=== PATIENT | male | born 1975 | race Two or more races ===

== ENCOUNTER → 2020-09-06 09:09 | Outpatient (REF) | payer MEDICAID, SELFPAY ==
--- NOTE | 2020-09-06 09:15 | CA_ITS ---
Acquisition Time: 2020-09-06 09:26:20 Total Exercise Time: 00:09:56 Test Indications: CP Medications: SEE CHART Protocol: BESS Max HR: 169 BPM 94% of Pred: 178 BPM Max BP: 160/070 mmHG Max Work Load: 11.5 METS Exercise stress test with exercise 9 min 56 sec of Bess protocol, without anginal symptoms, with rare isolated PAC and then 3 isolated PVC in recovery, with normotensive response to exercise, without EKG changes meeting criteria for ischemia. Test reviewed with Dr Cardenas Referred By: Urvashi Tong Overread By: MICHAEL ARREDONDO
== END ==
LOC: HO.CARD 09:09
PROVIDERS: PCP Nurse Practitioner Primary Care; Visit Provider Nurse Practitioner Primary Care
DX: E11.65 Type 2 diabetes mellitus with hyperglycemia (principal); R07.2 Precordial pain
CPT/HCPCS: 93017

== ENCOUNTER → 2020-09-30 13:47 | Outpatient (BNVA) | payer MEDICAID, SELFPAY | PROVIDERS: PCP Nurse Practitioner Primary Care; Referring Provider Nurse Practitioner Primary Care; Visit Provider Urology | DX: Z76.89 Persons encountering health services in other specified circumstances (principal) | CPT/HCPCS: 99202 ==

== ENCOUNTER → 2020-12-29 13:49 | Outpatient (BNVA) | payer MEDICAID, SELFPAY | PROVIDERS: PCP Nurse Practitioner Primary Care; Visit Provider Urology | DX: N52.01 Erectile dysfunction due to arterial insufficiency (principal) | CPT/HCPCS: 99212 ==

== ENCOUNTER → 2021-03-31 14:34 | Outpatient (BNVA) | payer MEDICAID, SELFPAY | PROVIDERS: PCP Nurse Practitioner Primary Care; Visit Provider Urology ==

== ENCOUNTER → 2021-07-07 14:10 | Outpatient (BNVA) | payer MEDICAID, SELFPAY | PROVIDERS: PCP Nurse Practitioner Primary Care; Visit Provider Urology | DX: N52.01 Erectile dysfunction due to arterial insufficiency (principal) | CPT/HCPCS: 99212 ==

== ENCOUNTER 2021-08-22 08:55 | Outpatient (REF) | payer MEDICAID, SELFPAY ==
[2021-08-22 09:43] LABS: COVID-19 Test Negative (Negative)
== END 2021-08-22 08:56 | disposition home or self-care (01) ==
LOC: HO.LAB 08:55
PROVIDERS: PCP Nurse Practitioner Primary Care; Visit Provider Internal Medicine
DX: Z20.822 Contact with and (suspected) exposure to COVID-19 (principal)
CPT/HCPCS: 36415; 87635; C9803

== ENCOUNTER 2024-04-29 15:02 | Outpatient (AMB) | payer OTHER, SELFPAY ==
--- NOTE | 2024-04-29 15:23 | A.OFFVIS_ITS ---
Intake Visit Reasons: Erectile Dys/Implant Consult(A1C 6.3) Intake Note: New Patient is present for Erectile Dysfunction. 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 He is a patient of Dr. Tong. He seen for the following urologic conditions - erectile dysfunction Discussion today Does have some degree of response to the oral medications Increase strength of tadalafil Discussed injectable therapy Prescription sent to [place] and he will call in received medication for teaching Last presentation 2020 Previously discussed may need penile prosthetic Erectile dysfunction Ongoing erectile dysfunction Type 2 diabetic Failed on demand oral medications Cannot gain erection or maintain erection Increase tadalafil to 20 mg daily with on demand sildenafil PFSH Medical History Anxiety disorder Diabetes mellitus, type II Lateral epicondylitis Surgical History (Updated 07/10/24 @ 10:29 by Lori Morley RN) Hx of circumcision Social History Are you a primary healthcare advisory services manager to a significant other at home: No Do you presently have visiting nurse or other home services: No Patient Tobacco Use Status: Former Tobacco user Have you been hit, kicked, punched, or otherwise hurt by someone within the past year? If so, by whom?: No Are you DNR?: No Advance Directives: No Advance Directives Information Provided: Yes Recently lost weight without trying: No Nutrition Risks: No Nutritional Risk Review of Systems Const Denies chills and Denies fever(s) Card Reports no additional complaints and Denies syncope Resp Denies cough GI Denies abdominal pain and Denies heartburn Reports as per HPI and Denies change in libido Neuro Denies syncope Psych Denies change in libido Endo Denies change in libido Physical Exam Const General: cooperative, healthy appearing, comfortable and no acute distress Orientation/consciousness: patient oriented x3 HEENT Face and sinus: Yes normal facial exam Mouth: moist mucous membranes Neck Neck: Yes normal visual inspection, Yes full ROM and Yes trachea midline Chest Chest palpation & inspection: normal inspection of the chest Resp Effort & Inspection: normal respiratory effort, able to speak in complete sentences and no respiratory distress GI Inspection: Yes normal to inspection Back/Spine/Pelvis Cervical Spine: normal cervical lordosis Thoracic/Lumbar Spine: thoracic and lumbar spine normal to inspection Skin General skin exam: no rashes or lesions noted Neuro General: patient oriented x3, gait normal, tone normal and moves all extremities Extrem General: Yes normal to inspection and Yes capillary refill normal Assessment & Plan Assessment & Plan (1) Erectile dysfunction associated with type 2 diabetes mellitus: Code(s): E11.69 - Type 2 diabetes mellitus with other specified complication; N52.1 - Erectile dysfunction due to diseases classified elsewhere Category: Medical Plan Six-month follow-up Patient Instructions: Imaging studies, laboratory and physical exam results were discussed and reviewed in detail. No major barriers to patient understanding were identified. An opportunity to ask questions regarding the treatment plan was provided. All questions were answered. The patient expressed understanding and agreement with the above treatment plan. The patient is aware they should contact our office by phone for worsening of their current condition or the appearance of new urologic symptoms. Compliance is encouraged with any medications and followup testing that is ordered. It is a privilege to participate in the urologic care of your patient. If you have any questions or concerns regarding treatment for the above conditions, or other urologic issues, please do not hesitate to contact me. The office telephone contact is [phone]. This note is constructed using voice recognition software. While every effort has been made to ensure accuracy dental practitioner errors may have been included. Yours sincerely, Dr Phillip Carrasquillo MD, FENG [facility] - Urology Providers of Expert, Compassionate Care for the Genitourinary System Coding Level of Care Code Est Pt Level 4 (35915) Diagnoses Erectile dysfunction associated with type 2 diabetes mellitus E11.69; N52.1
== END 2024-04-29 16:17 | disposition home or self-care (01) ==
PROVIDERS: PCP Nurse Practitioner Primary Care; Visit Provider Urology
DX: E11.69 Type 2 diabetes mellitus with other specified complication (principal); N52.1 Erectile dysfunction due to diseases classified elsewhere
CPT/HCPCS: 99214

== ENCOUNTER → 2024-04-29 15:02 | Outpatient (BNVA) | payer OTHER, SELFPAY | PROVIDERS: PCP Nurse Practitioner Primary Care; Visit Provider Urology ==

== ENCOUNTER 2024-07-10 09:56 | Day surgery (SDC) | payer OTHER, SELFPAY ==
[2024-07-10 10:26] VITALS: BMI 31.3
[2024-07-10 10:43] VITALS: BP 149/80; PULSE 79; RESP 18; TEMP 36.7; O2SAT 96
[2024-07-10] MEDS: Lactated Ringers 1,000 ML 80 ML IVCONT (10:49)
--- NOTE | 2024-07-10 11:01 | MHC.SHP ---
Pre-Procedural Eval Section A - 24 Hr Update-Section A only Date of Service: 07/10/24 Section B - Complete if H&P > 30 days Chief Complaint: screening Details of Present Illness: see H&P no changes Relevant Family History (Specify if Yes): No Relevant Social History: None Present Medications: see Short Stay Collaborative assessment Medical History: No relevant PMH History of Previous Operations: No relevant previous surgery Allergies: Allergies Allergy/AdvReac Type Severity Reaction Status Date / Time iodine Allergy Unknown unknown Verified 07/10/24 10:29 Review of Systems Sugical H&P ROS: Negative: Constitution, Cardiovascular, Respiratory, Neurological, Psychiatric, Hem-Onc, Allergic/Immunologic, Gastrointestinal, Genitourinary, Musculoskeletal, Integumentary, Endocrine and Eyes/Ears/Nose/Throat Exam Surgical H&P Exam: Normal: HEENT, Normal: Heart, Normal: Lungs, Normal: Extremities, Normal: Abdomen, Normal: Skin and Normal: Neurological Plan Diagnosis/Plan: Unchanged I have reviewed the history and physical and performed a pertinent physical examination on my patient. No changes have occurred unless specified. Time Spent With Patient Time: Total time managing care of this patient today ____ minutes.
--- NOTE | 2024-07-10 11:05 | P.CONAN_ITS ---
HPI - Anesthesia Eval Consult details Narrative: 48 yo M presenting for colonoscopy [facility] Active Problems Active Problems: All Active Problems Erectile dysfunction associated with type 2 diabetes mellitus (Acute) Erectile dysfunction due to arterial insufficiency (Acute) Past Medical History Medical History Anxiety disorder Diabetes mellitus, type II Lateral epicondylitis Family History Family history of problems with anesthesia: No Surgical History Surgical History (Updated 07/10/24 @ 10:29 by Lori Morley RN) Hx of circumcision History of Problems with Anesthesia: No Social History Social History Are you a primary pediatric critical care nurse to a significant other at home: No Do you presently have visiting nurse or other home services: No Patient Tobacco Use Status: Former Tobacco user Have you been hit, kicked, punched, or otherwise hurt by someone within the past year? If so, by whom?: No Are you DNR?: No Advance Directives: No Advance Directives Information Provided: Yes Recently lost weight without trying: No Nutrition Risks: No Nutritional Risk Meds Allergies Allergy/AdvReac Type Severity Reaction Status Date / Time iodine Allergy Unknown unknown Verified 07/10/24 10:29 Active Medications: Current Medications Lactated Ringer's (Lr) 1,000 mls @ 80 mls/hr IVCONT .[id number] MANAN Last Admin: 07/10/24 10:49 Dose: 80 mls/hr Exam Exam Date and Time: 07/10/24 1103 Height,Weight and Vital Signs: Height 5 ft 10 in Weight 98.883 kg Last Vital Signs Temp 98.0 F 07/10/24 10:43 Pulse 79 07/10/24 10:43 Resp 18 07/10/24 10:43 BP 149/80 H 07/10/24 10:43 Pulse Ox 96 07/10/24 10:43 O2 Del Method Room Air 07/10/24 10:43 Airway Mallampati Class: II TM Dist: >3cm Neck ROM: Full Denture: Upper and Lower Heart: S1S2 Lungs: CTAB Assessment and Plan Assessment Anesthesia Assessment: Anesthesia Plan Discussed and Chart Reviewed Final Anesthetic Review Family History of Problems with Anesthesia: No History of Problems with Anesthesia: No NPO: Yes ASA Class: II Final Preanesthetic Review: No Changes in Pt Med Stat, Meds/Allgs Chart Reviewed, Consent Obtained/Reviewed and Anes Risks/Benef Reviewed Patient Risk: Low Procedure Risk: Low Anesthetic Plan Anesthetic Plan: MAC: and Agree w/ Assess. and Plan Disposition: Standard PACU
[2024-07-10 11:29] VITALS: BP 100/55; PULSE 72; RESP 16; TEMP 36.1; O2SAT 96
[2024-07-10 11:44] VITALS: BP 122/73; PULSE 73; RESP 16; TEMP 36.6; O2SAT 96
--- NOTE | 2024-07-10 12:16 | OP_ITS ---
DATE OF SERVICE: 07/10/2024 SURGEON: Elijah Griffin MD INDICATIONS: Colon cancer screening. PREOPERATIVE DIAGNOSIS: POSTOPERATIVE DIAGNOSIS: PROCEDURE PERFORMED: Colonoscopy to the terminal ileum with biopsy. ESTIMATED BLOOD LOSS: COMPLICATIONS: ANESTHESIA: Monitored anesthesia care. ASSISTANTS: SPECIMENS: DESCRIPTION OF PROCEDURE: A history and physical was performed. The risks and benefits of the procedure were explained to the patient. Informed consent was obtained. The patient was placed in the left lateral decubitus position. A digital rectal exam was performed and was found to be normal. The Olympus pediatric video colonoscope was introduced into the rectum and advanced to the cecum. The cecum was identified by transillumination, palpation, and identification of ileocecal valve. Examination was performed. The scope was removed. He tolerated the procedure well and was returned to the recovery area in stable condition. FINDINGS: The terminal ileum was examined and appeared normal. The visualized colonic mucosa was normal. The quality of the prep was good. A single polyp measuring less than 5 mm was identified in the rectum and removed with a biopsy forceps. There were some hyperplastic changes to the mucosa in the rectum. Retroflexed examination showed some small internal hemorrhoids. IMPRESSION: Colon polyp. RECOMMENDATION: Follow up the biopsy results. MD TOYA Dawson/TAINA / [id number]
== END 2024-07-10 12:00 | disposition home or self-care (01) ==
PROVIDERS: PCP Nurse Practitioner Primary Care; Visit Provider Internal Medicine Gastroenterology
PROC: 0DJD8ZZ Inspection of Lower Intestinal Tract, Via Natural or Artificial Opening Endoscopic (ICD-10-PCS; CPT 45378; principal; 2024-07-10 11:50)
DX: Z12.11 Encounter for screening for malignant neoplasm of colon (principal); K62.1 Rectal polyp; K64.8 Other hemorrhoids; E11.9 Type 2 diabetes mellitus without complications; Z98.52 Vasectomy status
CPT/HCPCS: 45380; 88305; J2003; J2704

== ENCOUNTER 2025-08-04 13:44 | Outpatient (AMB) | payer OTHER, SELFPAY ==
--- OUTSIDE RECORDS SUMMARY | 2024-07-10 06:50 | XMS_ITS ---
Author Organization [facility] Address [address] [place] [id number] Care Team Providers Care Utility Operator Name Role Phone MIRYAM MANNING N.P. Primary Care Provider Elijah Oneil Jr REASON FOR VISIT screening Encounters Encounter Location Date Provider Diagnosis [facility] [place] Outpatient [address] [place] [id number] 07/10/2024 lEijah Griffin Jr Colon cancer screening Z12.11 and Colon polyps K63.5 Assessments Encounter Date Diagnosis (ICD Code) Assessment Notes Treatment Notes Treatment Clinical Notes Section Notes 07/10/2024 Colon cancer screening (ICD-10 - Z12.11) 07/10/2024 Colon polyps (ICD-10 - K63.5) Plan Of Treatment No Information Progress Notes * MEAGHAN ROSSOB:1975 ( 49 yo M)Acc No.[id number]:07/10/2024 COLON WITH MAC Patient: JESSICA RICO Provider: Hilary Griffin MD :1975 A ge:48 Y S ex:Male Date:07/10/2024 Address:[address] [place], [place] [id number] Pcp:MIRYAM MANNING N.P. Subjective: * Chief Complaints: * S creening Assessment: * Assessment: 1. C olon cancer screening - Z12.11 (Primary) 2 . C olon polyps - K63.5? Plan: * Procedure Codes: 4 5380 COLONOSCOPY AND [id number] INTRVL 3+YRS PTS CLNSCP [id number] RCMND FLW-UP 10 YRS DOCD, Modifiers: 1P Billing Information: * Procedure Codes: 16461 COLONOSCOPY AND BIOPSY. 0529F INTRVL 3+YRS PTS CLNSCP DOCD. 0528F RCMND FLW-UP 10 YRS DOCD. Modifiers: 1P * The named appointment provid er may or may not be the originator of this progress note, and it is not deemed complete until electronically signed by the appointment provider. Sign off status: Pending * Provider: Hilary Griffin MD Date: 1 Generated for Qasim guzman/Kayla/Renaeitting on: 10/05/2024 01:49 AM EST
--- NOTE | 2025-08-04 13:50 | MHC.OFFVIS ---
Intake Visit Reasons: FOLLOW UP FOR Rx REFILL Intake Note: Patient Is Present for Follow Up Urology Med: Sildenafil, Tadalafil Antibiotic Allergy: None Blood Thinner: None Sexologist Required: No Accompanied by: Self / Same As Patient Allergies iodine Allergy (Unknown, Verified 08/04/25 14:00) unknown HPI Comments Details: Carlos is a pleasant male. He is a patient of Dr. Tong. He seen for the following urologic conditions - erectile dysfunction Does have some effective doses 20 mg daily tadalafil and up to 200 mg on demand sildenafil Previously discussed may need penile prosthetic He wantched a video and found this was somewhat invasive Erectile dysfunction Ongoing erectile dysfunction Type 2 diabetic Failed on demand oral medications Cannot gain erection or maintain erection Previous all dosing includes tadalafil to 20 mg daily with on demand sildenafil Has been on injectable therapy [facility] Medical History (Updated 08/04/25 @ 14:21 by Phillip Carrasquillo MD) Erectile dysfunction due to arterial insufficiency Anxiety disorder Diabetes mellitus, type II Lateral epicondylitis Surgical History Hx of circumcision Social History Are you a primary critical care cns to a significant other at home: No Do you presently have visiting nurse or other home services: No Patient Tobacco Use Status: Former Tobacco user Review of Systems Const Denies chills and Denies fever(s) Card Reports no additional complaints and Denies syncope Resp Denies cough GI Denies abdominal pain and Denies heartburn Reports as per HPI and Denies change in libido Neuro Denies syncope Psych Denies change in libido Endo Denies change in libido Physical Exam Const General: cooperative, healthy appearing, comfortable and no acute distress Orientation/consciousness: patient oriented x3 HEENT Face and sinus: Yes normal facial exam Mouth: moist mucous membranes Neck Neck: Yes normal visual inspection, Yes full ROM and Yes trachea midline Chest Chest palpation & inspection: normal inspection of the chest Resp Effort & Inspection: normal respiratory effort, able to speak in complete sentences and no respiratory distress GI Inspection: Yes normal to inspection Back/Spine/Pelvis Cervical Spine: normal cervical lordosis Thoracic/Lumbar Spine: thoracic and lumbar spine normal to inspection Skin General skin exam: no rashes or lesions noted Neuro General: patient oriented x3, gait normal, tone normal and moves all extremities Extrem General: Yes normal to inspection and Yes capillary refill normal Assessment & Plan Assessment & Plan (1) Erectile dysfunction associated with type 2 diabetes mellitus: Code(s): E11.69 - Type 2 diabetes mellitus with other specified complication; N52.1 - Erectile dysfunction due to diseases classified elsewhere Category: Medical Plan Six-month follow-up Medications: Changed From sildenafil administer 60 minutes before intended activity To be used in addition to daily tadalafil 100 mg PO DAILY 30 days PRN 30 tabs 1RF sexual activity N52.01 - Erectile dysfunction due to arterial insufficiency To sildenafil administer 60 minutes before intended activity [id number] [facility] [id number] Member [id number] 100 mg PO DAILY PRN 30 tabs 2RF sexual activity 30 days N52.01 - Erectile dysfunction due to arterial insufficiency Refilled tadalafil 20 mg PO DAILY 90 tabs 1RF sexual activity 90 days N52.01 - Erectile dysfunction due to arterial insufficiency Discontinued tadalafil Discontinued Reason: Patient Refused 10 mg PO DAILY 90 days PRN 90 tabs 0RF sexual activity N52.01 - Erectile dysfunction due to arterial insufficiency, N52.9 - Male erectile dysfunction, unspecified Patient Instructions: This note is constructed using voice recognition software. While every effort has been made to ensure accuracy tin pot operator errors may have been included. Imaging studies, laboratory and physical exam results were discussed and reviewed in detail. No major barriers to patient understanding were identified. An opportunity to ask questions regarding the treatment plan was provided. All questions were answered. The patient expressed understanding and agreement with the above treatment plan. The patient is aware they should contact our office by phone for worsening of their current condition or the appearance of new urologic symptoms. Compliance is encouraged with any medications and followup testing that is ordered. It is a privilege to participate in the urologic care of your patient. If you have any questions or concerns regarding treatment for the above conditions, or other urologic issues, please do not hesitate to contact me. The office telephone contact is [phone]. Sincerely, Dr Phillip Carrasquillo MD, FENG [facility] - Urology Compassionate Specialist Care for the Genitourinary System Coding Level of Care Code Est Pt Level 4 (10924) Complex EM visit Add On G2211 Diagnoses Erectile dysfunction associated with type 2 diabetes mellitus E11.69; N52.1
--- OUTSIDE RECORDS SUMMARY | 2025-08-05 01:49 | XMS_ITS | Clinical Summary ---
Author Organization [employer] Address [address] [facility] [address] [place] [address] Care Team Providers Care Data Programmer Name Role Phone Urvashi Tong Primary Care Provider [phone] Allergies No known active allergies Medications glucose blood (FREESTYLE TEST STRIPS) test strip check blood sugar 2-3 times a day as directed 2 Active Alcohol Swabs (Alcohol Prep) 70 % padsIndications:Ty pe 2 diabetes mellitus with hyperlipidemia (HCC) USE 2 OR 3 TIMES DAILY 100 each 11 3 Active omeprazole (PriLOSEC) [address] capsuleIndications :Heartburn TAKE 1 CAPSULE BY MOUTH EVERY DAY BEFORE A MEAL 90 capsule 3 3 Active sildenafil (Viagra) 50 MG tabletIndications: Vasculogenic erectile dysfunction, unspecified vasculogenic erectile dysfunction type Take 1 tablet 1 hour before sexual relations 20 tablet 2 4 Active tadalafil (Cialis) 20 MG tabletIndications: Vasculogenic erectile dysfunction, unspecified vasculogenic erectile dysfunction type Take 1 tablet (20 mg) by mouth Once daily. 90 tablet 1 4 Active Active Problems Problem Noted Date Diagnosed Date Type 2 diabetes mellitus with hyperlipidemia 07/2024 Overview (02/25/2024): Not taking meds. Lab Results Component Value Date HGBA1C 6.3 (A) 02/25/2024 HGBA1C 8.8 (A) 09/24/2022 HGBA1C 7.4 (H) 05/11/2022 A1c 6.3 down from 8.8! Despite not taking meds. Doing really well w/ lifestyle interventions. encouraged to continue, though cautioned we may need to resume meds at some point regardless of his hard work. Need to check lipids, reconsider statin and ASA. Current ASCVD risk, with old lipid panel, is 4.7-5.5% (4.7 by ACC calculator, 5.5 by Epic), low to borderline risk. Eye exam: 12/2022 Moderate nonproliferative diabetic retinopathy of both eyes with macular edema, needs follow-up w/ specialist cassandra PCV20 due Foot exam at f/u Screening for malignant neoplasm of colon 2023 Overview (02/25/2024): agrees to colonoscopy. Refer to GI 02/25/24 Vasculogenic erectile dysfunction 02/25/2024 Overview (02/25/2024): Re-refer to urology. Resume daily cialis 20mg plus prn viagra 50mg. Considering implant. Essential hypertension 11/28/2015 Hyperlipidemia 04/14/2014 Mixed anxiety and depressive disorder 05/06/2012 Immunizations Immunization Administration Dates Next Due Influenza injectable quadrivalent preservative f ree 11/16/2014 Influenza, IIV3, injectable 10/12/2011, 1 Influenza, Split (incl. purified surface antigen ) 09/24/2012 Moderna Covid-19 Vaccine 12+ 02/09/2021,01/13/20 21 Pneumococcal Polysaccharide PPSV23 02/04/2014 TD (adult), 2 Lf tetanus tox oid, preservative free, adsorbed 05/25/2022 Tdap 10/11/2010 Family History Medical History Relation Name Comments Coronary artery disease Father Skin cancer Mother Relation Name Status Comments Father Alive Mother Alive Social History Tobacco Use Types Packs/Day Years Used Date Smoking Tobacco: Former Cigarettes Passive Smoke Exposure: Never Smokeless Tobacco: Never Comments:Quit cigarettes 202 1 Alcohol Use Standard Drinks/Week Comments Yes 0 (1 standard drink = 0.6 oz pur e alcohol) Depression Answer Date Recorded Patient Health Questionnaire-9 Score 0 02/25/2024 Patient Health Questionnaire-9 Score 0 02/25/2024 Last PHQ-9: Questionnaire Data Not on file 0 02/25/2024 Housing Stability Answer Date Recorded What is your housing situation today? I have oxana weller 02/14/[address] you li ve. Do you have problems with any of the following? None of the above 02/14/2024 Food Insecurity Answer Date Recorded Within the past 12 months, y ou worried that your food would run out before you got money to buy more: Never True 02/14/2024 Within the past 12 months,th e food you bought just didn't last and you didn't have enough money to get more: Never True Transportation Answer Date Recorded In the past 12 months, has l ack of transportation kept you from medical appts, meetings, work or from getting things needed for daily living? No 02/14/2024 Utilities Answer Date Recorded In the past 12 months, has t he electric, gas, oil or water company threatened to shut off services in your home? No 02/14/2024 Depression Answer Date Recorded Patient Health Questionnaire-2 Score 0 02/25/2024 Sex and Gender Information Value Date Recorded Sex Assigned at Male 07/16/2022 10:17 AM EDT Legal Sex Male 10:17 AM EDT Gender Identity Male 07/16/2022 10:17 AM EDT Sexual Orientation Straight 07/16/2022 10 :17 AM EDT Last Filed Vital Signs Vital Sign Reading Time Taken Comments Blood Pressure 145/86 09/11/2024 9:51 AM EST Pulse 87 09/11/2024 9:51 AM EST Temperature 36.6 C (97.9 F) 09/11/2024 9:51 AM EST Respiratory Rate 16 09/11/2024 9:51 AM EST Oxygen Saturation - - Inhaled Oxygen Concentration - - Weight 104 kg (228 lb 6.4 oz) 09/11/2024 9:51 AM EST Height 177.8 cm (5' 10 ) 09/11/2024 9:51 AM EST Body Mass Index 32.77 09/11/2024 9:51 AM EST Plan of Treatment Health Maintenance Due Date Last Done Comments CT Colonography 1977 FIT DNA/Cologuard 1977 FIT 1977 FOBT 1977 Sigmoidoscopy 1977 Disability Screening 1977 Diabetes: Foot Exam 1987 Eye Exam 1987 Alcohol/Substance Use Screening 1989 Family Planning (PISQ) 1992 Hepatitis B Vaccines (1 of 3 - 19+ 3-dose series) 1996 Pneumococcal Vaccine: Pediatrics (0 to 5 Years) and At-Risk Patients (6 to 49) Years (2 of 2 - PCV) 02/04/2015 02/04/2014 Diabetes: Urine Protein Screening 05/11/2023 05/11/2022, 08/26/2019 Lipid Panel 05/11/2023 05/11/2022 Diabetes: Hemoglobin A1C 08/26/2024 024, 09/24/2022, 05/11/2022, Additional history exists SDOH Screening 02/13/2025 02/14/2024 Depression Screening 02/24/2025 02/25/2024, 02/25/20 24 Tobacco Screening 02/24/2025 02/25/2024 COVID-19 Vaccine (3 - 2024- season) 2025 02/09/2021, 01/12/2021 Influenza Vaccine (#1) 2025 5, 09/24/2012, 10/12/2011, Additional history exists Zoster Vaccines (1 of 2) 2027 DTaP/Tdap/Td Vaccines (3 - Td or Tdap) 05/25/2032 05/25/2022, 10/11/2010 Colonoscopy 07/10/2034 07/10/2024 Colorectal Cancer Screening 07/10/2034 RSV Patients and Patients Aged 60 years or older (1 - 1-dose 75+ series) 2052 HIV Screening Completed 08/26/2019 Hepatitis C Screening Completed 08/26/2019 HIB Vaccines Aged Out No longer eligi ble based on patient's age to complete this topic HPV Vaccines Aged Out No longer eligi ble based on patient's age to complete this topic Hepatitis A Vaccines Aged Out No long er eligible based on patient's age to complete this topic IPV Vaccines Aged Out No longer eligi ble based on patient's age to complete this topic Meningococcal B Vaccine Aged Out No l onger eligible based on patient's age to complete this topic Meningococcal Vaccine Aged Out No anette rodger eligible based on patient's age to complete this topic RSV under 20 months Aged Out No longe r eligible based on patient's age to complete this topic Rotavirus Vaccines Aged Out No longer eligible based on patient's age to complete this topic Procedures Procedure Name Priority Date/Time Associated Diagnosis Comments COLONOSCOPY Routine 07/10/2024 POCT GLYCATED HEMOGLOBIN, TOTAL Routine 02/25/2024 1:58 PM EDT Type 2 diabetes mellitus with hyperlipidemia (CMS/HCC) (CMS/HCC) ALBUMIN, RANDOM URINE W/CREATININE Routine 05/11/2022 10:52 AM EDT LIPID PANEL, STANDARD Routine 05/11/2022 10:52 AM EDT Z HISTORICAL HEPATITIS C ANTIBODY RFLX Routine 08/26/2019 8:25 AM EST [facility] HISTORICAL HIV AB/AG Routine 08/26/2019 8:25 AM EST from Last 3 Months or Most Recently Relevant to Health Maintenance Results * Colonoscopy (07/10/2024) Pathologist [facility] Colonoscopy Normal Normal Narrative Selene Cooper - 07/10/2024 Recommended 10 year follow up Historical Provider MD HEALTH MAINTENANCE Final Result * (ABNORMAL) POCT HGB A1C (02/25/2024 1:58 PM EDT) [facility] Hemoglobin A1C 6.3(A) 4.0 - 6.0 % QC Media Lot # [id number] Lot# Expiration Date Blood 02/25/2024 1:58 PM EDT us Urvashi Tong ANP POINT OF CARE TEST ENTER/EDIT OR DERABLES Final Result * ALBUMIN, RANDOM URINE W/CREATININE (05/11/2022 10:52 AM EDT) Pathologist [facility] Microalbumin Urine 0.7 See Note: mg/dL [facility] Comment: Reference Range: Reference Range Not established Microalb/Creat Ratio 3 <30 mcg/mg creat [facility] Comment: The ADA defines abnormalities in albumin excretion as follows: Albuminuria Category Result (mcg/mg creatinine) Normal to Mildly increased <30 Moderately increased 30-299 Severely increased > OR = 300 The ADA recommends that at least two of three specimens collected within a 3-6 month period be abnormal before considering a patient to be within a diagnostic category. Creatinine, Urine 203 20 - 320 mg/dL [facility] 05/11/2022 10:5 2 AM EDT Urvashi Tong ANP LAB URINE ORDERABLES Final Resul t Performing Organization Address [facility] de Phone Number [facility] [address] [place] [address], [place] * (ABNORMAL) LIPID PANEL, STANDARD (05/11/2022 10:52 AM EDT) Chol/HDLC Ratio 4.5 <5.0 (calc) [facility] Cholesterol, Total 216(H) <200 mg/dL [facility] HDL Cholesterol 48 > OR = 40 mg/dL [facility] LDL Cholesterol 134(H) mg/dL (calc) [facility] Comment: Reference range: <100 Desirable range <100 mg/dL for primary prevention; <70 mg/dL for patients with CHD or diabetic patients with > or = 2 CHD risk factors. LDL-C is now calculated using the Campbell-Loco calculation, which is a validated novel method providing better accuracy than the Friedewald equation in the estimation of LDL-C. Campbell ANTONIO et al. LOUISE. 2013;310(19): 4962-7019 (http://education.[employer].com/faq/FSI010) Non-HDL Cholesterol 168(H) <130 mg/dL (calc) [facility] Comment: For patients with diabetes plus 1 major ASCVD risk factor, treating to a non-HDL-C goal of <100 mg/dL (LDL-C of <70 mg/dL) is considered a therapeutic option. Triglycerides 195(H) <150 mg/dL [facility] 05/11/2022 10:5 2 AM EDT us Urvashi Tong ANP LAB BLOOD ORDERABLES Final Resul t Performing Organization Address [facility] Phone Number [facility] [address] [place] [address], * HEPATITIS C ANTIBODY RFLX (08/26/2019 8:25 AM EST) HEPATITIS C ANTIBODY NONREACTIVE NONREACTIVE [facility] Comment: Antibodies to HCV not detected; does not exclude early acute HCV infection. 08/26/2019 8:25 AM EST Randal Vann MD HISTORICAL/NON ORDERABLE LABS Fi nal Result Performing Organization Address [facility] [address] * HIV AB/AG (08/26/2019 8:25 AM EST) HIV AG/AB NONREACTIVE NR [facility] Comment: HIV-1 p24 Ag and/or HIV-1/HIV-2 Ab not detected. A test result that is nonreactive does not exclude the possibility of exposure to or infection with HIV-1 and/or HIV-2. Nonreactive results in this assay for individuals with prior exposure to HIV-1 and/or HIV-2 may be due to antigen and antibody levels that are below the limit of detection of this assay. The [employer] HIV Ag/Ab Combo assay result and supplemental assay results should be interpreted in conjunction with the patient's clinical presentation, history and other laboratory results. If the results are inconsistent with clinical evidence, additional testing is suggested to confirm the result. 08/26/2019 8:25 AM EST Randal Vann MD HISTORICAL/NON ORDERABLE LABS Fi nal Result Performing Organization Address [facility] [address] from Last 3 Months or Most Recently Relevant to Health Maintenance Insurance [facility] [address] [place] [address] Care Teams Data Programmer Relationship Specialty Start Date End Date Urvashi Tong ANP [address] [place] [id number] PCP - General Family Medicine 08/07/19
--- OUTSIDE RECORDS SUMMARY | 2025-08-05 01:49 | XMS_ITS | Encounter Summary ---
Author Organization [employer] Address [address] [facility] [address] [place] [address] Care Team Providers Care Communication Analyst Name Role Phone Urvashi Tong Primary Care Provider [phone] Encounter Details Date Type Department Care Team (Late st Contact Info) Description 10/08/2022 Orders Only [facility] [address] [place], [place] [id number] Lea Logan LPN Social History Tobacco Use Types Packs/Day Years Used Date Smoking Tobacco: Never Passive Smoke Exposure: Never Smokeless Tobacco: Never Alcohol Use Standard Drinks/Week Comments Yes 0 (1 standard drink = 0.6 oz pur e alcohol) Sex and Gender Information Value Date Recorded Sex Assigned at Male 07/16/2022 10:17 AM EDT Legal Sex Male 10:17 AM EDT Gender Identity Male 07/16/2022 10:17 AM EDT Sexual Orientation Straight 07/16/2022 10 :17 AM EDT COVID-19 Exposure Response Date Recorded In the last 10 days, have yo u been in contact with someone who was confirmed or suspected to have Coronavirus/COVID-19? No / Unsure 09/24/2022 2:41 PM EST documented as of this encounter Plan of Treatment Not on file documented as of this encounter Visit Diagnoses Not on filedocumented in this encounter Care Teams Communication Analyst Relationship Specialty Start Date End Date Urvashi Tong ANP [address] [place] [address] PCP - General Family Medicine 08/07/19 documented as of this encounter
--- OUTSIDE RECORDS SUMMARY | 2025-08-05 01:50 | XMS_ITS | Patient Health Record ---
Author Organization [facility] Address [address] [place] [id number] Care Team Providers Care Intermodal Customer Service Name Role Phone MIRYAM MANNING N.P. Primary Care Provider Elijah Oneil Jr Allergies No Known Allergies Reason For Referral No Information Medications Medication SIG (Take, Route, Frequency, Duration) Notes Start Date End Date Status MiraLax (colon prep) 17 GM/SCOOP Powder mixed with Gatorade or Crystal Light Orally begin at 5:00 p.m. the day before the procedure; Duration: 1 day 06/11/2024 Active Social History Tobacco Use: Social History Observation Description Date Details (start date - stop date) Never Smoker NA - NA Social History Drugs/Alcohol: Social Info Question Answer Notes Alcohol Screen Did you have a drink containing alcohol in the past year? Yes How often did you have a drink containing alcohol in the past year? Monthly or less (1 point) How many drinks did you have on a typical day when you were drinking in the past year? 1 or 2 drinks (0 point) How often did you have 6 or more drinks on one occasion in the past year? 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 [employer] Problems Problem Type SNOMED Code ICD Code Onset Dates Problem Status W/U Status Risk Notes Problem Colon cancer screening (836253070) Colon cancer screening (Z12.11) Active confirmed Problem Pre-procedure evaluation check (699103331) Encounter for other preprocedural examination (Z01.818) Active confirmed Plan Of Treatment Future Test Test Name Order Date COLONOSCOPY 06/11/2024 Insurance Providers Payer Name Payer Address Payer Phone Subscriber Number Group Number Insured Name Patient Relationship to Insured Coverage Start Date Coverage End Date [facility] [address] [facility] [place] [phone] [id number] JESSICA ROSS Self - patient is the insured Medical (General) History Medical History History ICD Code Diabetes mellitus type 2, diet-controlle d Surgical History Surgery Date(Month/Year) vasectomy
== END 2025-08-04 14:24 | disposition home or self-care (01) ==
LOC: HO.HUSH 13:45
PROVIDERS: PCP Nurse Practitioner Primary Care; Visit Provider Urology
DX: E11.69 Type 2 diabetes mellitus with other specified complication (principal); N52.1 Erectile dysfunction due to diseases classified elsewhere
CPT/HCPCS: 99214; G2211